=== PATIENT | female | born 1975 | race African-American/Black ===

== ENCOUNTER 2017-07-16 14:27 | Emergency (ER) | payer OTHER ==
[2017-07-16] MEDS ORDERED: ISOVUE-370 76%-LOCM 1 ML ONE (14:31)
[2017-07-16] MEDS ORDERED: HYDROcodone/Acetaminophen 10/325 mg Tablet ONE (18:37)
[2017-07-16 18:39] LABS: #Eosinphils 0.6 thou/uL (0.0-0.7); #Lymphocytes 1.9 thou/uL (1.20-3.40); #Monocytes 0.3 thou/uL (0.11-0.59); %Basophils 0.2 % (0.0-1.0); %Eosinophils 10.5 % (0.0-10.0); %Lymphocytes 33.2 % (21.0-51.0); %Monocytes 5.4 % (0.0-10.0); %Neutrophils 50.7 % (42.0-75.0); Hemoglobin 12.3 g/dL (12.0-16.0); Mean Corpuscular HGB CONC 32.2 g/dL (32.0-36.0); Mean Corpuscular Hemoglobin 31.2 pg (27.0-31.0); Mean Corpuscular Volume 96.9 fl (81.0-99.0); Mean Platelet Volume 7.2 fL (7.4-10.4); Platelet Count 265 thou/uL (130-400); RBC Distribution Width 12.7 % (11.5-14.5); Red Blood Cell (RBC) Count 3.94 mill/uL (4.20-5.40); White Blood Cell (WBC) Count 5.8 thou/uL (4.8-10.8)
[2017-07-16 18:47] LABS: Prothrombin Time 13.7 SEC (12.0-14.7)
[2017-07-16 19:05] LABS: ALT (SGPT) 12 U/L (8-55); AST (SGOT) 45 U/L (5-34); Albumin 3.8 g/dL (3.5-5.0); Alkaline Phosphatase 85 U/L (40-150); Anion Gap 11 mmol/L (10-20); BUN (Urea Nitrogen) 5 mg/dL (7.0-18.7); Bilirubin, Total 0.2 mg/dL (0.2-1.2); Calc. Creatinine Clearance 0 mL/min (70-130); Calcium 9.2 mg/dL (7.8-10.44); Carbon Dioxide 26 mmol/L (22-29); Chloride 103 mmol/L (98-107); Estimated GFR-MDRD 89; Globulin 3.3 g/dL (2.4-3.5); Glucose 79 mg/dL (70-105); Potassium 3.9 mmol/L (3.5-5.1); Protein, Total 7.1 g/dL (6.0-8.3); Sodium 136 mmol/L (136-145)
--- NOTE | 2017-07-16 19:36 | CT ---
CT PULMONARY ANGIO OF CHEST WITH CONTRAST 07/16/17 Multiple axial tomograms obtained through the chest following pulmonary angio protocol with multiplan ar reconstructions and 3D postprocessing. HISTORY: Cough. Shortness of breath. Chest pain. FINDINGS: The pulmonary arteries are suboptimally opacified. This degrades the study. No evidence of proximal p ulmonary embolus. Peripheral pulmonary emboli to the subsegmental level cannot be excluded on this st udy. The lungs are clear with no evidence of infiltrate or effusion. Mediastinum unremarkable. Images thro ugh upper abdomen unremarkable. IMPRESSION: Suboptimal pulmonary angio study. No proximal pulmonary embolus identified. POS: [facility]
== END 2017-07-16 19:10 | disposition home or self-care (01) ==
LOC: ERS 14:27
DX: J20.9 Acute bronchitis, unspecified (principal); I10 Essential (primary) hypertension; F17.290 Nicotine dependence, other tobacco product, uncomplicated; Z86.718 Personal history of other venous thrombosis and embolism; Z71.6 Tobacco abuse counseling
CPT/HCPCS: 36415; 71275; 80053; 83605; 85025; 85610; 85730; 87804; 99406

== ENCOUNTER 2017-07-31 16:11 | Emergency (ER) | payer OTHER ==
[2017-07-31 18:29] LABS: #Basophils 0.1 thou/uL (0.0-0.2); #Eosinphils 0.7 thou/uL (0.0-0.7); #Lymphocytes 2.2 thou/uL (1.20-3.40); #Monocytes 0.4 thou/uL (0.11-0.59); #Neutrophils 3.2 thou/uL (1.40-6.50); %Eosinophils 10.4 % (0.0-10.0); %Monocytes 6.2 % (0.0-10.0); %Neutrophils 49.3 % (42.0-75.0); Mean Corpuscular HGB CONC 33.4 g/dL (32.0-36.0); Mean Corpuscular Hemoglobin 31.9 pg (27.0-31.0); Mean Corpuscular Volume 95.5 fl (81.0-99.0); Mean Platelet Volume 7.2 fL (7.4-10.4); Platelet Count 303 thou/uL (130-400); RBC Distribution Width 12.6 % (11.5-14.5); White Blood Cell (WBC) Count 6.6 thou/uL (4.8-10.8)
[2017-07-31 18:31] LABS: PTT 26.2 SEC (22.9-36.1)
[2017-07-31 19:05] LABS: ALT (SGPT) 19 U/L (8-55); AST (SGOT) 57 U/L (5-34); Albumin 4.5 g/dL (3.5-5.0); Alkaline Phosphatase 111 U/L (40-150); Anion Gap 14 mmol/L (10-20); BUN (Urea Nitrogen) 13 mg/dL (7.0-18.7); Bilirubin, Total Less than 0.2 mg/dL (0.2-1.2); Calc. Creatinine Clearance 0 mL/min (70-130); Calcium 9.8 mg/dL (7.8-10.44); Carbon Dioxide 25 mmol/L (22-29); Chloride 105 mmol/L (98-107); Estimated GFR-MDRD 75; Globulin 4.6 g/dL (2.4-3.5); Glucose 94 mg/dL (70-105); Potassium 3.8 mmol/L (3.5-5.1); Protein, Total 9.1 g/dL (6.0-8.3); Sodium 140 mmol/L (136-145)
--- NOTE | 2017-07-31 19:35 | RAD ---
LEFT FOOT THREE VIEW 07/31/17 HISTORY: Left toe pain. COMPARISON: Radiograph 2012. 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 There is extensive edema all throughout the midfoot and forefoot. There is severe edema of the second digit. No definite erosions or periostitis. No acute fracture or malalignment. IMPRESSION: 1. Intact normal appearing amputation site to the great toe interphalangeal joint. 2. Extensive soft tissue swelling of the second digit without radiographic evidence osteomyeliti s. If there is clinical concern, MRI recommended. 3. Extensive soft tissue swelling throughout the midfoot and forefoot. POS: [facility]
[2017-07-31] MEDS ORDERED: Lidocaine 1% PF 5 ML VIAL ONE (19:55)
[2017-07-31] MEDS ORDERED: HYDROcodone/Acetaminophen 5/325 mg Tablet ONE (19:55)
--- NOTE | 2017-07-31 20:19 | ULT ---
LEFT LOWER EXTREMITY VENOUS DOPPLER 07/31/17 HISTORY: Pain. COMPARISON: None. TECHNIQUE: Real time diaz scale color doppler and spectral analysis of the left lower extremity venous system is performed. Common femoral, femoral, proximal portion of the greater saphenous and deep femoral veins as well as the popliteal and posterior tibial veins are interrogated. There is normal flow, augmentation and compression. IMPRESSION: No deep venous thrombosis. POS: [facility]
== END 2017-07-31 20:32 | disposition home or self-care (01) ==
LOC: ERS 16:11
DX: I73.9 Peripheral vascular disease, unspecified (principal); M79.675 Pain in left toe(s); I10 Essential (primary) hypertension; Z86.718 Personal history of other venous thrombosis and embolism
CPT/HCPCS: 36415; 64450; 80053; 85025; 85610; 85730; J2001

== ENCOUNTER 2017-12-02 18:30 | Emergency (ER) | payer OTHER ==
[2017-12-02] MEDS ORDERED: Acetaminophen/Codeine 30-300mg Tablet ONE (20:35)
== END 2017-12-02 21:09 | disposition home or self-care (01) ==
LOC: ERS 18:30
DX: K05.10 Chronic gingivitis, plaque induced (principal); K02.9 Dental caries, unspecified; E11.9 Type 2 diabetes mellitus without complications; I10 Essential (primary) hypertension; Z86.718 Personal history of other venous thrombosis and embolism; F17.290 Nicotine dependence, other tobacco product, uncomplicated
CPT/HCPCS: 99282

== ENCOUNTER 2018-04-27 18:42 | Emergency (ER) | payer OTHER ==
[2018-04-27] MEDS ORDERED: HYDROcodone/Acetaminophen 5/325 mg Tablet ONE (19:16)
== END 2018-04-27 19:21 | disposition home or self-care (01) ==
LOC: ERS 18:42
DX: K04.7 Periapical abscess without sinus (principal); K03.81 Cracked tooth; I10 Essential (primary) hypertension; F17.210 Nicotine dependence, cigarettes, uncomplicated; Z79.899 Other long term (current) drug therapy
CPT/HCPCS: 99282

== ENCOUNTER 2018-05-05 13:45 | Emergency (ER) | payer OTHER ==
[2018-05-05] MEDS ORDERED: Ketorolac Tromethamine 60 MG/2 ML VIAL ONE (14:34)
[2018-05-05] MEDS ORDERED: Acetaminophen 500 MG TAB ONE (14:51)
== END 2018-05-05 14:56 | disposition home or self-care (01) ==
LOC: ERS 13:45
DX: M25.532 Pain in left wrist (principal); M77.9 Enthesopathy, unspecified; E11.9 Type 2 diabetes mellitus without complications; I10 Essential (primary) hypertension; F17.210 Nicotine dependence, cigarettes, uncomplicated; Z86.73 Personal history of transient ischemic attack (TIA), and cerebral infarction without residual deficits; Z79.82 Long term (current) use of aspirin; Z79.899 Other long term (current) drug therapy
CPT/HCPCS: 99283; J1885

== ENCOUNTER 2018-09-04 15:03 | Emergency (ER) | payer OTHER ==
[2018-09-04 15:52] LABS: Bilirubin Negative (Negative); Blood, Urine Negative (Negative); Clarity CLEAR (Clear); Glucose, Urine (Dipstick) >=1000 mg/dL (Negative); Leukocyte Negative (Negative); Nitrite Negative (Negative); Protein, Urine (Dipstick) Negative (Neg-Trace); Specific Gravity, Urine 1.042 (1.002-1.036)
[2018-09-04 15:58] LABS: Pregnancy Test - Urine (BHCG) Negative (Negative); Pregu Control Background? CLEAR/WHITE (CLR/WHITE); Pregu Control Bar Appear? YES (CONTROL BAR); Specific Gravity 1.042 (1.002-1.036)
[2018-09-04 16:17] LABS: #Eosinphils 0.1 thou/uL (0.0-0.7); #Lymphocytes 1.7 thou/uL (1.20-3.40); #Monocytes 0.4 thou/uL (0.11-0.59); #Neutrophils 3.2 thou/uL (1.40-6.50); %Basophils 0.8 % (0.0-1.0); %Lymphocytes 31.3 % (21.0-51.0); %Neutrophils 58.9 % (42.0-75.0); Hemoglobin 14.2 g/dL (12.0-16.0); Mean Corpuscular HGB CONC 32.4 g/dL (32.0-36.0); Mean Corpuscular Hemoglobin 30.7 pg (27.0-31.0); Mean Corpuscular Volume 94.7 fL (78.0-98.0); Mean Platelet Volume 10.3 fL (7.4-10.4); Platelet Count 191 thou/uL (130-400); RBC Distribution Width 13.1 % (11.5-14.5); Red Blood Cell (RBC) Count 4.63 mill/uL (4.20-5.40); White Blood Cell (WBC) Count 5.4 thou/uL (4.8-10.8)
[2018-09-04 17:32] LABS: ALT (SGPT) 19 U/L (8-55); AST (SGOT) 124 U/L (5-34); Albumin 3.5 g/dL (3.5-5.0); Alkaline Phosphatase 143 U/L (40-150); Anion Gap 11 mmol/L (10-20); BUN (Urea Nitrogen) 7 mg/dL (7.0-18.7); Bilirubin, Total 0.3 mg/dL (0.2-1.2); Calc. Creatinine Clearance 0 mL/min (70-130); Calcium 8.7 mg/dL (7.8-10.44); Carbon Dioxide 26 mmol/L (22-29); Chloride 103 mmol/L (98-107); Estimated GFR-MDRD 88; Globulin 3.1 g/dL (2.4-3.5); Glucose 392 mg/dL (70-105); Lipase 35 U/L (8-78); Potassium 3.9 mmol/L (3.5-5.1); Protein, Total 6.6 g/dL (6.0-8.3); Sodium 136 mmol/L (136-145)
== END 2018-09-04 19:00 | disposition home or self-care (01) ==
LOC: ERS 15:03
DX: E11.65 Type 2 diabetes mellitus with hyperglycemia (principal); I10 Essential (primary) hypertension; F17.210 Nicotine dependence, cigarettes, uncomplicated; Z79.82 Long term (current) use of aspirin; Z86.73 Personal history of transient ischemic attack (TIA), and cerebral infarction without residual deficits; Z79.899 Other long term (current) drug therapy; Z79.84 Long term (current) use of oral hypoglycemic drugs
CPT/HCPCS: 36415; 36416; 80053; 81003; 81025; 82010; 83690; 85025; 96360

== ENCOUNTER 2018-12-30 17:40 | Emergency (ER) | payer OTHER ==
[2018-12-30] MEDS ORDERED: Dexamethasone 4 MG TAB ONE (19:38)
[2018-12-30] MEDS ORDERED: HYDROcodone/Acetaminophen 10/325 mg Tablet ONE (19:38)
[2018-12-30] MEDS ORDERED: Clindamycin/D5W 900 mg/50 ml Premix Bag ONE (19:39)
[2018-12-30 19:52] LABS: #Eosinphils 0.1 thou/uL (0.0-0.7); #Lymphocytes 1.5 thou/uL (1.20-3.40); #Monocytes 0.4 thou/uL (0.11-0.59); #Neutrophils 3.3 thou/uL (1.40-6.50); %Basophils 0.7 % (0.0-1.0); %Eosinophils 2.2 % (0.0-10.0); %Lymphocytes 27.6 % (21.0-51.0); %Monocytes 7.9 % (0.0-10.0); %Neutrophils 61.6 % (42.0-75.0); Hemoglobin 13.1 g/dL (12.0-16.0); Mean Corpuscular HGB CONC 32.3 g/dL (32.0-36.0); Mean Corpuscular Hemoglobin 30.8 pg (27.0-31.0); Mean Corpuscular Volume 95.3 fL (78.0-98.0); Mean Platelet Volume 7.3 fL (7.4-10.4); Platelet Count 260 thou/uL (130-400); RBC Distribution Width 12.5 % (11.5-14.5); Red Blood Cell (RBC) Count 4.26 mill/uL (4.20-5.40); White Blood Cell (WBC) Count 5.4 thou/uL (4.8-10.8)
[2018-12-30 20:12] LABS: ALT (SGPT) 12 U/L (8-55); AST (SGOT) 92 U/L (5-34); Albumin 3.9 g/dL (3.5-5.0); Alkaline Phosphatase 99 U/L (40-150); Anion Gap 13 mmol/L (10-20); BUN (Urea Nitrogen) 8 mg/dL (7.0-18.7); Bilirubin, Total Less than 0.2 mg/dL (0.2-1.2); Calc. Creatinine Clearance 0 mL/min (70-130); Calcium 9.6 mg/dL (7.8-10.44); Carbon Dioxide 28 mmol/L (22-29); Chloride 99 mmol/L (98-107); Estimated GFR-MDRD Greater than 90; Globulin 3.8 g/dL (2.4-3.5); Glucose 179 mg/dL (70-105); Protein, Total 7.7 g/dL (6.0-8.3); Sodium 136 mmol/L (136-145)
== END 2018-12-30 22:05 | disposition home or self-care (01) ==
LOC: ERS 17:40
DX: K04.7 Periapical abscess without sinus (principal); L03.211 Cellulitis of face; I10 Essential (primary) hypertension; F17.210 Nicotine dependence, cigarettes, uncomplicated; Z79.82 Long term (current) use of aspirin; Z86.718 Personal history of other venous thrombosis and embolism; Z79.899 Other long term (current) drug therapy; Z79.01 Long term (current) use of anticoagulants
CPT/HCPCS: 36415; 80053; 85025; 96365; J3490; J8540

== ENCOUNTER 2019-03-24 14:36 | Emergency (ER) | payer OTHER ==
[2019-03-24 15:06] LABS: #Eosinphils 0.2 thou/uL (0.0-0.7); #Lymphocytes 1.7 thou/uL (1.20-3.40); #Monocytes 0.3 thou/uL (0.11-0.59); %Basophils 0.4 % (0.0-1.0); %Lymphocytes 31.9 % (21.0-51.0); %Monocytes 6.5 % (0.0-10.0); %Neutrophils 57.2 % (42.0-75.0); Mean Corpuscular HGB CONC 34.3 g/dL (32.0-36.0); Mean Corpuscular Hemoglobin 32.1 pg (27.0-31.0); Mean Corpuscular Volume 93.5 fL (78.0-98.0); Mean Platelet Volume 7.7 fL (7.4-10.4); Platelet Count 268 thou/uL (130-400); RBC Distribution Width 11.9 % (11.5-14.5); Red Blood Cell (RBC) Count 4.04 mill/uL (4.20-5.40); White Blood Cell (WBC) Count 5.2 thou/uL (4.8-10.8)
[2019-03-24 15:29] LABS: ALT (SGPT) 18 U/L (8-55); AST (SGOT) 114 U/L (5-34); Albumin 3.9 g/dL (3.5-5.0); Alkaline Phosphatase 137 U/L (40-110); Anion Gap 15 mmol/L (10-20); BUN (Urea Nitrogen) 5 mg/dL (7.0-18.7); Bilirubin, Total 0.2 mg/dL (0.2-1.2); Calc. Creatinine Clearance 0 mL/min (70-130); Calcium 9.1 mg/dL (7.8-10.44); Carbon Dioxide 25 mmol/L (22-29); Chloride 100 mmol/L (98-107); Estimated GFR-MDRD 83; Globulin 3.5 g/dL (2.4-3.5); Glucose 316 mg/dL (70-105); Potassium 3.5 mmol/L (3.5-5.1); Protein, Total 7.4 g/dL (6.0-8.3); Sodium 136 mmol/L (136-145)
[2019-03-24 16:33] LABS: Bacteria/HPF 4+ HPF (None Seen); Bilirubin Negative (Negative); Blood, Urine 3+ (Negative); Clarity Clear (Clear); Glucose, Urine (Dipstick) Greater than 1000 mg/dL (Negative); Leukocyte 75 Leu/uL (Negative); Nitrite 2+ (Negative); Pregnancy Test - Urine (BHCG) Negative (Negative); Pregu Control Background? CLEAR/WHITE (CLR/WHITE); Pregu Control Bar Appear? YES (CONTROL BAR); Protein, Urine (Dipstick) 10 mg/dL (Neg-Trace); Specific Gravity 1.042 (1.002-1.036); Squamous Epithelial 0-3 HPF (0-3); Urobilinogen Normal mg/dL (Less than 2); WBC/HPF Greater than 50 HPF (0-3)
[2019-03-24] MEDS ORDERED: Acetaminophen 500 MG TAB ONE (16:50)
== END 2019-03-24 16:55 | disposition home or self-care (01) ==
LOC: ERS 14:36
DX: N93.8 Other specified abnormal uterine and vaginal bleeding (principal); N39.0 Urinary tract infection, site not specified; E11.9 Type 2 diabetes mellitus without complications; I10 Essential (primary) hypertension; Z86.718 Personal history of other venous thrombosis and embolism; F17.210 Nicotine dependence, cigarettes, uncomplicated; Z79.899 Other long term (current) drug therapy; Z79.82 Long term (current) use of aspirin
CPT/HCPCS: 36415; 80053; 81003; 81015; 81025; 85025; 99284

== ENCOUNTER 2020-05-28 00:57 | Emergency (ER) | payer OTHER ==
[2020-05-28] MEDS ORDERED: Lidocaine 1% PF 5 ML VIAL ONE (02:22)
[2020-05-28] MEDS ORDERED: Bupivacaine 0.5% 10 ML VIAL ONE (02:22)
[2020-05-28] MEDS ORDERED: HYDROcodone/Acetaminophen 5/325 mg Tablet ONE (03:06)
== END 2020-05-28 04:07 | disposition home or self-care (01) ==
LOC: ERS 00:57
DX: L03.211 Cellulitis of face (principal); K03.2 Erosion of teeth; E11.9 Type 2 diabetes mellitus without complications; I10 Essential (primary) hypertension; Z86.718 Personal history of other venous thrombosis and embolism; F17.210 Nicotine dependence, cigarettes, uncomplicated; Z79.82 Long term (current) use of aspirin; Z79.4 Long term (current) use of insulin; Z79.899 Other long term (current) drug therapy
CPT/HCPCS: 64400; J3490

== ENCOUNTER 2020-06-07 15:20 | Emergency (ER) | payer OTHER ==
[2020-06-07] MEDS ORDERED: Ondansetron PF 4 MG/2 ML Vial ONE (16:37)
--- NOTE | 2020-06-07 16:41 | RAD ---
Frontal radiograph chest: 06/07/2020 COMPARISON: None HISTORY: Cough with vomiting and body aches FINDINGS: Nonspecific mild increased linear interstitial density is noted in the perihilar regions. N o pneumothorax, lobar consolidation, or alveolar edema. Question subtle perihilar groundglass opacity on the right. IMPRESSION: Mild perihilar interstitial prominence with subtle right perihilar groundglass opacity. F indings could be related to Covid pneumonia in the proper clinical setting. No focal consolidation or alveolar edema.
[2020-06-07 17:15] LABS: #Basophils 0.1 thou/uL (0.0-0.2); #Eosinphils 0.2 thou/uL (0.0-0.7); #Lymphocytes 2.2 thou/uL (1.20-3.40); #Monocytes 0.6 thou/uL (0.11-0.59); #Neutrophils 7.4 thou/uL (1.40-6.50); %Basophils 0.5 % (0.0-1.0); %Eosinophils 1.9 % (0.0-10.0); %Lymphocytes 21.2 % (21.0-51.0); %Monocytes 5.9 % (0.0-10.0); %Neutrophils 70.5 % (42.0-75.0); Hemoglobin 14.3 g/dL (12.0-16.0); Mean Corpuscular HGB CONC 33.6 g/dL (32.0-36.0); Mean Corpuscular Hemoglobin 31.3 pg (27.0-31.0); Mean Corpuscular Volume 93.2 fL (78.0-98.0); Mean Platelet Volume 8.2 fL (7.4-10.4); Platelet Count 337 thou/uL (130-400); RBC Distribution Width 12.2 % (11.5-14.5); Red Blood Cell (RBC) Count 4.57 mill/uL (4.20-5.40); White Blood Cell (WBC) Count 10.5 thou/uL (4.8-10.8)
[2020-06-07 17:39] LABS: ALT (SGPT) 22 U/L (8-55); AST (SGOT) 62 U/L (5-34); Albumin 3.9 g/dL (3.5-5.0); Alkaline Phosphatase 152 U/L (40-110); Anion Gap 13 mmol/L (10-20); BUN (Urea Nitrogen) 6 mg/dL (7.0-18.7); Bilirubin, Total Less than 0.2 mg/dL (0.2-1.2); Calc. Creatinine Clearance 0 mL/min (70-130); Calcium 9.2 mg/dL (7.8-10.44); Carbon Dioxide 27 mmol/L (22-29); Chloride 98 mmol/L (98-107); Globulin 4.7 g/dL (2.4-3.5); Glucose 293 mg/dL (70-105); Potassium 3.3 mmol/L (3.5-5.1); Protein, Total 8.6 g/dL (6.0-8.3); Sodium 135 mmol/L (136-145)
[2020-06-07] MEDS ORDERED: Insulin Regular 300 UNITS/3 ML VIAL ONE (17:52)
[2020-06-07] MEDS ORDERED: Potassium Chloride 20 MEQ TAB ONE (17:52)
[2020-06-07 23:55] LABS: SARS-CoV-2 MS2 Positive; SARS-CoV-2 N Gene Negative; SARS-CoV-2 S Gene Negative; SARS-CoV-2 by NAA Not Detected (NotDetected); SARS-CoV-2 orf1ab Negative
== END 2020-06-07 20:15 | disposition home or self-care (01) ==
LOC: ERS 15:20
DX: R50.9 Fever, unspecified (principal); R11.2 Nausea with vomiting, unspecified; I10 Essential (primary) hypertension; Z20.828 Contact with and (suspected) exposure to other viral communicable diseases; E11.65 Type 2 diabetes mellitus with hyperglycemia; F17.210 Nicotine dependence, cigarettes, uncomplicated; Z79.82 Long term (current) use of aspirin; Z86.73 Personal history of transient ischemic attack (TIA), and cerebral infarction without residual deficits; Z79.899 Other long term (current) drug therapy
CPT/HCPCS: 36415; 36416; 71045; 80053; 83605; 85025; 87635; 94760; 96374; 96375; J1815; J2405; U0003

== ENCOUNTER 2020-07-10 15:53 | Emergency (ER) | payer OTHER ==
--- NOTE | 2020-07-10 17:01 | RAD ---
EXAM: 3 views of the left foot HISTORY: Middle toe swelling and discoloration COMPARISON: 07/31/2017 FINDINGS: 3 views of the left foot shows no evidence of acute fracture or dislocation. The patient is status post amputation of the great toe through the interphalangeal joint. Mild soft tissue swelling is seen at the distal aspect of the second and third toes. No osseous erosions are identifie d. No degenerative changes are present. IMPRESSION: Soft tissue swelling of the toes without underlying erosions to suggest osteomyelitis
[2020-07-10] MEDS ORDERED: HYDROcodone/Acetaminophen 5/325 mg Tablet ONE (18:04)
== END 2020-07-10 18:15 | disposition home or self-care (01) ==
LOC: ERS 15:53
DX: L03.032 Cellulitis of left toe (principal); E11.9 Type 2 diabetes mellitus without complications; I10 Essential (primary) hypertension; F17.210 Nicotine dependence, cigarettes, uncomplicated; Z86.73 Personal history of transient ischemic attack (TIA), and cerebral infarction without residual deficits; Z89.412 Acquired absence of left great toe

== ENCOUNTER 2020-10-07 23:44 | Emergency (ER) | payer OTHER ==
[2020-10-08] MEDS ORDERED: Lidocaine 1% PF 5 ML VIAL ONE ×2 (00:07→00:48)
[2020-10-08] MEDS ORDERED: Boostrix 0.5 ML (Tdap) VIAL ONE (00:07)
[2020-10-08] MEDS ORDERED: Ketorolac Tromethamine 30 MG/ML VIAL ONE (00:07)
[2020-10-08] MEDS ORDERED: Rabies Vaccine Human 2.5 UNITS VIAL IM ONE (00:15)
[2020-10-08] MEDS ORDERED: Amoxicillin/Potassium Clav 875 MG TAB ONE (01:22)
== END 2020-10-08 01:45 | disposition home or self-care (01) ==
LOC: ERS 23:44
DX: S91.011A Laceration without foreign body, right ankle, initial encounter (principal); E11.9 Type 2 diabetes mellitus without complications; I10 Essential (primary) hypertension; Z86.718 Personal history of other venous thrombosis and embolism; Z23 Encounter for immunization; F17.210 Nicotine dependence, cigarettes, uncomplicated; W54.0XXA Bitten by dog, initial encounter
CPT/HCPCS: 12002; 90376; 90471; 90472; 90675; 90715; 96372; J1885

== ENCOUNTER → 2020-10-12 | Day surgery (SDC) | payer OTHER ==
[~2020-10-12] MED LIST: Rabies Vaccine Human 2.5 UNITS VIAL IM ONE
== END ==
LOC: ER/OP 11:26
DX: Z23 Encounter for immunization (principal); Z88.5 Allergy status to narcotic agent; Z88.8 Allergy status to other drugs, medicaments and biological substances
CPT/HCPCS: 90471; 90675

== ENCOUNTER 2020-10-19 18:25 | Emergency (ER) | payer OTHER ==
[2020-10-19] MEDS ORDERED: Rabies Vaccine Human 2.5 UNITS VIAL IM ONE (19:00)
== END 2020-10-19 19:33 | disposition home or self-care (01) ==
LOC: ERS 18:27
DX: Z23 Encounter for immunization (principal); E11.9 Type 2 diabetes mellitus without complications; I10 Essential (primary) hypertension; Z86.718 Personal history of other venous thrombosis and embolism; Z87.891 Personal history of nicotine dependence
CPT/HCPCS: 90471; 90675

== ENCOUNTER → 2020-10-23 | Day surgery (SDC) | payer OTHER | LOC: ER/OP 20:07 | PROVIDERS: ATTEND Emergency Medicine | DX: Z23 Encounter for immunization (principal); Z88.5 Allergy status to narcotic agent; Z88.8 Allergy status to other drugs, medicaments and biological substances | CPT/HCPCS: 90471; 90675 ==

== ENCOUNTER 2020-12-13 20:02 | Emergency (ER) | payer OTHER ==
[~2020-12-13 20:02] MED LIST changes: +Iopamidol-370 76% 500 ML 1 ML ONE; -Rabies Vaccine Human 2.5 UNITS VIAL IM ONE
[2020-12-13] MEDS ORDERED: Ondansetron PF 4 MG/2 ML Vial ONE (20:56)
[2020-12-13] MEDS ORDERED: Ketorolac Tromethamine 30 MG/ML VIAL ONE (21:11)
[2020-12-13 21:27] LABS: BHCG - Serum Negative (NEGATIVE); Pregs Control Background? CLEAR/WHITE (CLR/WHITE); Pregs Control Bar Appear? YES (CONTROL BAR)
[2020-12-13 21:28] LABS: #Lymphocytes 1.5 thou/uL (1.20-3.40); #Monocytes 0.5 thou/uL (0.11-0.59); #Neutrophils 8.4 thou/uL (1.40-6.50); %Basophils 0.1 % (0.0-1.0); %Eosinophils 0.5 % (0.0-10.0); %Monocytes 4.6 % (0.0-10.0); %Neutrophils 80.8 % (42.0-75.0); Hemoglobin 13.1 g/dL (12.0-16.0); Mean Corpuscular HGB CONC 34.9 g/dL (32.0-36.0); Mean Corpuscular Hemoglobin 32.6 pg (27.0-31.0); Mean Corpuscular Volume 93.6 fL (78.0-98.0); Mean Platelet Volume 8.6 fL (7.4-10.4); Platelet Count 260 thou/uL (130-400); RBC Distribution Width 11.9 % (11.5-14.5); Red Blood Cell (RBC) Count 4.01 mill/uL (4.20-5.40); White Blood Cell (WBC) Count 10.3 thou/uL (4.8-10.8)
[2020-12-13 21:48] LABS: ALT (SGPT) 16 U/L (8-55); AST (SGOT) 37 U/L (5-34); Albumin 3.8 g/dL (3.5-5.0); Alkaline Phosphatase 127 U/L (40-110); Anion Gap 19 mmol/L (10-20); BUN (Urea Nitrogen) 4 mg/dL (7.0-18.7); Bilirubin, Total 0.2 mg/dL (0.2-1.2); Calc. Creatinine Clearance 0 mL/min (70-130); Calcium 9.2 mg/dL (7.8-10.44); Carbon Dioxide 22 mmol/L (22-29); Chloride 99 mmol/L (98-107); Globulin 4.5 g/dL (2.4-3.5); Glucose 239 mg/dL (70-105); Lipase 23 U/L (8-78); Potassium 4.1 mmol/L (3.5-5.1); Protein, Total 8.3 g/dL (6.0-8.3); Sodium 136 mmol/L (136-145)
== END 2020-12-13 23:45 | disposition home or self-care (01) ==
LOC: ERS 20:02
DX: R10.84 Generalized abdominal pain (principal); D73.89 Other diseases of spleen; Z79.899 Other long term (current) drug therapy; Z79.4 Long term (current) use of insulin; E11.9 Type 2 diabetes mellitus without complications; I10 Essential (primary) hypertension; Z87.891 Personal history of nicotine dependence
CPT/HCPCS: 74177; 80053; 83690; 84703; 85025; 96374; 96375; J1885; J2405; Q9967

== ENCOUNTER 2021-04-18 09:16 | Outpatient (CLI) | payer OTHER | END 2021-04-18 09:17 | disposition home or self-care (01) | LOC: BICMAMMO 09:16 | PROVIDERS: ATTEND Internal Medicine | DX: N63.20 Unspecified lump in the left breast, unspecified quadrant (principal) | CPT/HCPCS: G0279 ==

== ENCOUNTER 2021-07-11 11:57 | Outpatient (CLI) | payer OTHER | END 2021-07-11 11:58 | disposition home or self-care (01) | LOC: CT 11:57 | PROVIDERS: ATTEND Internal Medicine | DX: R05.3 Chronic cough (principal) | CPT/HCPCS: 71250 ==

== ENCOUNTER 2023-02-02 08:34 | Emergency (ER) | payer OTHER ==
[2023-02-02] MEDS ORDERED: Ketorolac Tromethamine 30 MG/ML VIAL ONE (09:21)
== END 2023-02-02 09:44 | disposition home or self-care (01) ==
LOC: ERS 08:34
DX: S60.221A Contusion of right hand, initial encounter (principal); E11.9 Type 2 diabetes mellitus without complications; I10 Essential (primary) hypertension; F17.210 Nicotine dependence, cigarettes, uncomplicated; W22.8XXA Striking against or struck by other objects, initial encounter; Z79.82 Long term (current) use of aspirin; Z79.4 Long term (current) use of insulin; Z79.899 Other long term (current) drug therapy
CPT/HCPCS: 96372; J1885

== ENCOUNTER 2023-03-27 12:54 | Outpatient (CLI) | payer BC, OTHER | END 2023-03-27 12:55 | disposition home or self-care (01) | LOC: BICRAD 12:54 | PROVIDERS: ATTEND Student in an Organized Health Care Education/Training Program | DX: S63.501D Unspecified sprain of right wrist, subsequent encounter (principal) ==

== ENCOUNTER 2023-04-05 11:10 | Outpatient (CLI) | payer BC, OTHER | END 2023-04-05 11:11 | disposition home or self-care (01) | LOC: BICRAD 11:10 | PROVIDERS: ATTEND Student in an Organized Health Care Education/Training Program | DX: M25.531 Pain in right wrist (principal) ==

== ENCOUNTER 2023-12-27 13:24 | Outpatient (CLI) | payer BC, OTHER ==
[2023-12-27 14:25] LABS: BHCG - Serum Negative (NEGATIVE); Pregs Control Background? CLEAR/WHITE (CLR/WHITE); Pregs Control Bar Appear? YES (CONTROL BAR)
[2023-12-27] MEDS ORDERED: Iopamidol 370 76% 100 ML VIAL ONE (15:53)
== END 2023-12-27 13:25 | disposition home or self-care (01) ==
LOC: CT 13:24
PROVIDERS: ATTEND Thoracic Surgery (Cardiothoracic Vascular Surgery)
DX: I73.9 Peripheral vascular disease, unspecified (principal); I74.5 Embolism and thrombosis of iliac artery; Z98.890 Other specified postprocedural states
CPT/HCPCS: 36415; 75635; 84703; Q9967

== ENCOUNTER 2023-12-31 10:46 | Emergency (ER) | payer BC, OTHER ==
[2023-12-31] MEDS ORDERED: HYDROcodone/Acetaminophen 5/325 mg Tablet ONE (11:36)
== END 2023-12-31 11:43 | disposition home or self-care (01) ==
LOC: ERS 10:46
DX: J06.9 Acute upper respiratory infection, unspecified (principal); K02.9 Dental caries, unspecified; E11.9 Type 2 diabetes mellitus without complications; I10 Essential (primary) hypertension; F17.210 Nicotine dependence, cigarettes, uncomplicated; Z55.6 Problems related to health literacy; Z79.4 Long term (current) use of insulin; Z79.899 Other long term (current) drug therapy
CPT/HCPCS: 99282

== ENCOUNTER 2025-03-09 13:42 | Emergency (ER) | payer BC, OTHER ==
[2025-03-09] MEDS ORDERED: Acetaminophen 500 MG TAB ONE (15:39)
[2025-03-09] MEDS ORDERED: Ketorolac Tromethamine 30 MG (1 mL) VIAL ONE (16:06)
== END 2025-03-09 16:20 | disposition home or self-care (01) ==
LOC: ERS 13:42
DX: K08.89 Other specified disorders of teeth and supporting structures (principal); E11.9 Type 2 diabetes mellitus without complications; I10 Essential (primary) hypertension; F17.210 Nicotine dependence, cigarettes, uncomplicated; Z86.718 Personal history of other venous thrombosis and embolism
CPT/HCPCS: 96372; 99282; J1885